=== PATIENT | male | born 1985 | race Hispanic/Latino ===

== ENCOUNTER 2017-04-22 13:16 | Emergency (ER) | payer OTHER, SELFPAY ==
[2017-04-22] MEDS ORDERED: Ketorolac Tromethamine 30 MG/ML VIAL ONE (14:44)
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
== END 2017-04-22 15:57 | disposition home or self-care (01) ==
LOC: ERS 13:16
DX: S20.212A Contusion of left front wall of thorax, initial encounter (principal); V43.92XA Unspecified car occupant injured in collision with other type car in traffic accident, initial encounter; W22.10XA Striking against or struck by unspecified automobile airbag, initial encounter
CPT/HCPCS: 96372; J1885